=== PATIENT | female | born 1985 | race Caucasian/White ===

== ENCOUNTER 2018-01-02 10:55 | Emergency (ER) | payer OTHER ==
[2018-01-02] MEDS ORDERED: IBUPROFEN 400 MG TAB ONE (11:26)
--- NOTE | 2018-01-02 12:18 | RAD REPORT ---
EXAM DESCRIPTION: RAD - Ankle Left 3 View - 01/02/2018 12:01 pm CLINICAL HISTORY: PAIN COMPARISON: None FINDINGS: Prominent lateral soft tissue swelling is noted. Small bony corticated fragment seen infer ior to the distal fibula, which may represent an avulsion fracture. No dislocation. Small calcaneal s purs.
--- NOTE | 2018-01-02 12:22 | RAD REPORT ---
EXAM DESCRIPTION: RAD - Foot Left 3 View - 01/02/2018 12:01 pm CLINICAL HISTORY: PAIN COMPARISON: FOOT AP LAT dated 01/27/2011 FINDINGS: Soft tissue swelling is seen about the ankle. A small ankle joint fusion is present. Fract ure of the foot is not identified. Small calcaneal spurs noted.
--- NOTE | 2018-01-02 12:22 | ER ---
Nurse's Notes [facility] Name: Arabella Wright Age: 32 yrs Sex: Female : 1985 Arrival Date: 01/02/2018 Time: 10:57 Bed 13 Private MD: Diagnosis: Left Ankle Avulsion Fracture of Lateral Malleolus Presentation: 01/02 11:10 Initial Sepsis Screen: Does the patient meet any 2 criteria?. rb1 11:10 Risk Assessment: Do you want to hurt yourself or someone else? Patient reports no rb1 desire to harm self or others. Initial Sepsis Screen: Does the patient have a suspected source of infection? No. Patient's initial sepsis screen is negative. 11:12 Presenting complaint: Patient states: Rolled left ankle while hopping down from chair hb yesterday, c/o left foot and ankle pain 01/05. Unable to bear weight. Transition of care: patient was not received from another setting of care. Onset of symptoms was January 01, 2018. Care prior to arrival: None. 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 - Social history:: Smoking status: Patient/guardian denies using tobacco. - Ebola Screening: : No symptoms or risks identified at this time. Screenin:10 Abuse screen: Denies threats or abuse. Nutritional screening: No deficits noted. rb1 Tuberculosis screening: No symptoms or risk factors identified. Fall Risk Fall in past 12 months (25 points). No secondary diagnosis (0 pts). No IV (0 pts). Ambulatory Aid- None/Bed Rest/Nurse Assist (0 pts). Gait- Normal/Bed Rest/Wheelchair (0 pts) Mental Status- Oriented to own ability (0 pts). Total Nieto Fall Scale indicates Low Risk Score (25-44 pts). Fall prevention measures have been instituted. Side Rails Up X 2 Placed close to Nursing Station 1:1 attendant Assigned to Pt. Frequent Obs/Assesments occuring Family Present and informed to notify staff if they need to leave bedside As available Patient and Family Educated on Fall Prevention Program and strategies. Assessment: 11:10 General: Appears uncomfortable, obese, Behavior is calm, cooperative. Pain: Complains rb1 of pain in left lateral ankle and left medial ankle Pain currently is 10 out of 10 on a pain scale. Pain began 1 day ago. Aggravated by weight bearing. Neuro: Level of Consciousness is awake, alert, obeys commands, Oriented to person, place, time, situation. Cardiovascular: Capillary refill < 3 seconds is brisk in left toes. Respiratory: Airway is patent Respiratory effort is even, unlabored, Respiratory pattern is regular, symmetrical. GI: No signs and/or symptoms were reported involving the gastrointestinal system. : No signs and/or symptoms were reported regarding the genitourinary system. Derm: Skin is pink, warm \T\ dry. Musculoskeletal: Range of motion: limited in left ankle Swelling present in left lateral ankle and left medial ankle. 12:00 Reassessment: Patient appears in no apparent distress at this time. Patient and/or rb1 family updated on plan of care and expected duration. Pain level reassessed. Patient is alert, oriented x 3, equal unlabored respirations, skin warm/dry/pink. Family at bedside. Vital Signs: 11:13 BP 164 / 81; Pulse 90; Resp 16; Temp 98.3; Pulse Ox 98% ; Pain 8/10; hb 12:00 BP 152 / 83; Pulse 81; Resp 18; Pulse Ox 100% on R/A; Pain 5/10; rb1 ED Course: 10:57 Patient arrived in ED. as 11:09 Joss Kaplan PA is PHCP. cp 11:09 Gary Bazzi MD is Attending Physician. cp 11:09 Alma Valiente, RN is Primary Nurse. rb1 11:10 Patient has correct armband on for positive identification. Bed in low position. Call rb1 light in reach. Side rails up X 1. Pulse ox on. NIBP on. 11:13 Triage completed. hb 11:13 Arm band placed on right wrist. hb 12:00 X-ray completed. Portable x-ray completed in exam room. Patient tolerated procedure ka well. 12:21 Dain Ontiveros MD is Referral Physician. cp 12:35 No provider procedures requiring assistance completed. Patient did not have IV access rb1 during this emergency room visit. Administered Medications: 11:25 Drug: Ibuprofen 800 mg Route: PO; rb1 12:00 Follow up: Response: No adverse reaction; Pain is decreased rb1 Outcome: 12:22 Discharge ordered by . cp 12:35 Discharged to home via wheelchair, with family. rb1 12:35 Condition: stable 12:35 Discharge instructions given to patient, Instructed on discharge instructions, follow up and referral plans. medication usage, Demonstrated understanding of instructions, follow-up care, medications, Prescriptions given X 2. 12:35 Patient left the ED. rb1 Signatures: Yenny Delacruz Corey, PA PA cp Barber, Rebecca, MICHELLE RN rb1 Soraida Blanchard Heather RN RN Corrections: (The following items were deleted from the chart) 12:41 12:41 Patient left the ED. rb1 rb1
--- NOTE | 2018-01-02 12:22 | EDPHYS ---
Physician Documentation [facility] Name: Arabella Wright Age: 32 yrs Sex: Female : 1985 Arrival Date: 01/02/2018 Time: 10:57 Bed 13 Private MD: ED Physician Gary Bazzi HPI: 01/02 11:34 This 32 yrs old Female presents to ER via Wheelchair with complaints of Ankle cp Injury. 11:34 The patient presents with decreased range of motion, pain, that is acute, swelling, cp tenderness. The complaints affect the left ankle, left foot. Onset: The symptoms/episode began/occurred yesterday. 11:34 Associated signs and symptoms: Pertinent positives: weakness, Pertinent negatives: calf cp tenderness, numbness, tingling. 11:34 Severity of symptoms: in the emergency department the symptoms are unchanged, despite cp home interventions. 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 - Social history:: Smoking status: Patient/guardian denies using tobacco. - Ebola Screening: : No symptoms or risks identified at this time. ROS: 11:38 Constitutional: Negative for body aches, chills, fever, poor PO intake. cp 11:38 Eyes: Negative for injury, pain, redness, and discharge. cp 11:38 Cardiovascular: Negative for chest pain, edema, palpitations. 11:38 Respiratory: Negative for cough, shortness of breath, wheezing. 11:38 Abdomen/GI: Negative for abdominal pain, nausea, vomiting, and diarrhea. 11:38 MS/extremity: Positive for injury or acute deformity, decreased range of motion, pain, swelling, tenderness, of the left ankle, Negative for paresthesias. 11:38 Skin: Negative for cellulitis, rash. 11:38 All other systems are negative. Exam: 11:42 Constitutional: The patient appears in no acute distress, alert, awake, well developed, cp well nourished. 11:42 Head/Face: Normocephalic, atraumatic. cp 11:42 Eyes: Periorbital structures: appear normal, Conjunctiva: normal, no exudate, no injection, Lids and lashes: appear normal, bilaterally. 11:42 ENT: External ear(s): are unremarkable, Nose: is normal, Mouth: Lips: moist, Oral mucosa: moist, Posterior pharynx: is normal, airway is patent, no erythema, no exudate. 11:42 Chest/axilla: Inspection: normal, Palpation: is normal, no crepitus, no tenderness. 11:42 Cardiovascular: Rate: normal, Rhythm: regular. 11:42 Respiratory: the patient does not display signs of respiratory distress, Respirations: normal, no use of accessory muscles, no retractions, no splinting, no tachypnea. 11:42 Abdomen/GI: Exam negative for discomfort, distension, guarding, Inspection: abdomen appears normal. 11:42 Back: pain, is absent, ROM is normal. 11:42 Musculoskeletal/extremity: Extremities: grossly normal except: noted in the left ankle: decreased ROM, pain, swelling, tenderness, left foot pain and tenderness. 11:42 Neuro: Sensation: no obvious gross deficits. Vital Signs: 11:13 BP 164 / 81; Pulse 90; Resp 16; Temp 98.3; Pulse Ox 98% ; Pain 8/10; hb 12:00 BP 152 / 83; Pulse 81; Resp 18; Pulse Ox 100% on R/A; Pain 5/10; rb1 Procedures: 12:35 Splinting: Splint applied to left ankle and left foot using walking boot. applied by cp nurse. Examined by me, post splint application: neurovascular intact, Patient tolerated well. MDM: 11:09 Patient medically screened. cp 12:00 Differential diagnosis: fracture, sprain, dislocation. cp 12:21 Data reviewed: vital signs, nurses notes, lab test result(s), radiologic studies, plain cp films. 12:21 Test interpretation: by ED physician or midlevel provider: plain radiologic studies. cp Counseling: I had a detailed discussion with the patient and/or guardian regarding: the historical points, exam findings, and any diagnostic results supporting the discharge/admit diagnosis, radiology results, the need for outpatient follow up, a orthopedic surgeon, to return to the emergency department if symptoms worsen or persist or if there are any questions or concerns that arise at home. Response to treatment: the patient's symptoms have mildly improved after treatment, and as a result, I will discharge patient. 01/02 11:34 Order name: XRAY Ankle LEFT 3 view cp 01/02 11:34 Order name: XRAY Foot LEFT 3 View cp 01/02 12:13 Order name: Walking boot; Complete Time: 12:37 cp 01/02 12:18 Order name: RAD; Complete Time: 12:20 EDMS 01/02 12:23 Order name: RAD EDMD Administered Medications: 11:25 Drug: Ibuprofen 800 mg Route: PO; rb1 12:00 Follow up: Response: No adverse reaction; Pain is decreased rb1 Disposition: 18:39 Co-signature as Attending Physician, Gary Bazzi MD. rn Disposition: 01/02/18 12:22 Discharged to Home. Impression: Left Ankle Avulsion Fracture of Lateral Malleolus. - Condition is Stable. - Discharge Instructions: Ankle Fracture. - Prescriptions for Ibuprofen 800 mg Oral Tablet - take 1 tablet by ORAL route every 8 hours As needed take with food; 30 tablet. Tramadol 50 mg Oral Tablet - take 1 tablet by ORAL route every 8 hours as needed; 20 tablet. - Medication Reconciliation Form, Thank You Letter, Antibiotic Education, Prescription Opioid Use form. - Follow up: Dain Ontiveros MD; When: 1 week; Reason: avulsion fracture left ankle. - Problem is new. - Symptoms have improved. Signatures: Dispatcher [employer] EDMD Gary Bazzi MD MD rn Joss Kaplan PA PA cp Alma Valiente RN RN rb1 Rhianna Rehman RN RN Corrections: (The following items were deleted from the chart) 12:38 12:13 Crutches ordered. cp rb1 12:41 12:22 01/02/2018 12:22 Discharged to Home. Impression: Left Ankle Avulsion Fracture of rb1 Lateral Malleolus. Condition is Stable. Forms are Medication Reconciliation Form, Thank You Letter, Antibiotic Education, Prescription Opioid Use. Follow up: Dr. Dain Ontiveros; When: 1 week; Reason: avulsion fracture left ankle. Problem is new. Symptoms have improved. cp
== END 2018-01-02 12:41 | disposition home or self-care (01) ==
LOC: ER 10:55
DX: S82.62XA Displaced fracture of lateral malleolus of left fibula, initial encounter for closed fracture (principal); X58.XXXA Exposure to other specified factors, initial encounter; Y93.9 Activity, unspecified; Y92.9 Unspecified place or not applicable; Z88.0 Allergy status to penicillin
CPT/HCPCS: 99283

== ENCOUNTER 2018-06-19 18:41 | Observation (INO) | payer OTHER ==
[2018-06-19 19:33] LABS: Protime INR 1.11
[2018-06-19 19:34] LABS: Absolute Monocytes 0.5 K/uL (0.1-1.3); Absolute Neutrophil 5.7 K/uL (1.8-8.0); Basophils % 0.6 % (0-1.3); Eosinophils % 0.4 % (0-4.4); Hematocrit 38.8 % (36.0-45.0); MPV 9.5 fL (7.6-11.3); Monocytes % 5.4 % (3.3-12.3); RBC Red Blood Cell Count 4.63 M/uL (3.86-4.86)
[2018-06-19 19:51] LABS: ALT/SGPT 32 U/L (12-78); AST/SGOT 18 U/L (15-37); Alkaline Phosphatase 85 U/L (45-117); BUN Blood Urea Nitrogen 16 mg/dL (7-18); Bicarbonate 25 mmol/L (21-32); Bilirubin Direct 0.1 mg/dL (0-0.2); Bilirubin Total 0.5 mg/dL (0.2-1.0); Glucose Level 90 mg/dL (74-106); Lipase 113 U/L (73-393); Magnesium 2.1 mg/dL (1.8-2.4); NT PRO-BNP 33 pg/mL (<125); Potassium 3.8 mmol/L (3.5-5.1); Protein, Total 8.4 g/dL (6.4-8.2); Sodium Level 137 mmol/L (136-145); Troponin (Emerg Dept Use Only) < 0.02 ng/mL (0.0-0.045)
[2018-06-19] MEDS ORDERED: ONDANSETRON 4 MG/2 ML VIAL ONE (19:56)
[2018-06-19] MEDS ORDERED: MORPHINE 4 MG/ML SYR ONE ×2 (19:56→22:02)
--- NOTE | 2018-06-19 20:12 | RAD REPORT ---
EXAM DESCRIPTION: Sophia Single View06/19/2018 7:55 pm CLINICAL HISTORY: Chest pain COMPARISON: 2017 FINDINGS: The lungs appear clear of acute infiltrate. The heart is normal size IMPRESSION: No acute abnormalities displayed
--- NOTE | 2018-06-19 21:43 | EDPHYS ---
Physician Documentation [facility] Name: Arabella Wright Age: 32 yrs Sex: Female : 1985 Arrival Date: 06/19/2018 Time: 18:42 Bed 2 Private MD: ED Physician Oscar Milan HPI: 06/19 21:22 This 32 yrs old Female presents to ER via Wheelchair with complaints of Chest gs Pain. 21:22 The patient or guardian reports chest pain that is located primarily in the epigastric gs area. The pain does not radiate. Associated signs and symptoms: Pertinent positives: abdominal pain, nausea. The chest pain is described as burning. Duration: The patient or guardian reports a single episode, that is still ongoing. Severity of pain: At its worst the pain was moderate in the emergency department the pain is unchanged. The patient has experienced similar episodes in the past, a few times. The patient has been recently seen by a physician: rosalee roberts. 21:40 says was in [place] last week had abl gallbladder and abl troponin and was admitted. 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 - Social history:: Smoking status: Patient/guardian denies using tobacco. - Ebola Screening: : No symptoms or risks identified at this time. ROS: 21:22 All other systems are negative. gs Exam: 21:22 Constitutional: The patient appears alert, awake. 21:43 ECG was reviewed by the Attending Physician. Vital Signs: 19:14 BP 157 / 102; Pulse 91; Resp 24; Temp 98.8; Pulse Ox 100% on R/A; Weight 124.74 kg; ph Height 5 ft. 8 in. (172.72 cm); Pain 10/10; 20:50 BP 115 / 60; Pulse 79; Resp 14; Pulse Ox 99% on R/A; aa1 22:03 BP 127 / 82; Pulse 80; Resp 16; Pulse Ox 98% on R/A; Pain 4/10; tl1 22:38 BP 125 / 73; Pulse 79; Resp 15; Temp 98.7; Pulse Ox 98% on R/A; Pain 2/10; tl1 19:14 Body Mass Index 41.81 (124.74 kg, 172.72 cm) ph MDM: 19:12 Patient medically screened. 21:39 Differential diagnosis: abnormal EKG, acute myocardial infarction. Data reviewed: vital gs signs, nurses notes. 06/19 19:10 Order name: Basic Metabolic Panel 06/19 19:10 Order name: CBC with Diff 06/19 19:10 Order name: LFT's 06/19 19:10 Order name: Magnesium 06/19 19:10 Order name: NT PRO-BNP 06/19 19:10 Order name: PT-INR 06/19 19:10 Order name: Troponin (emerg Dept Use Only) 06/19 19:12 Order name: Lipase 06/19 20:23 Order name: US Abdomen Limited 06/19 20:33 Order name: Urine Dipstick--Ancillary (enter results) [facility] 06/19 20:33 Order name: Urine --Ancillary (enter results) [facility] 06/19 19:10 Order name: EKG; Complete Time: 21:49 06/19 19:10 Order name: Cardiac monitoring; Complete Time: 19:35 06/19 19:10 Order name: EKG - Nurse/Tech; Complete Time: 19:35 06/19 19:10 Order name: IV Saline Lock; Complete Time: 19:35 06/19 19:10 Order name: Labs collected and sent; Complete Time: 19:35 06/19 19:10 Order name: O2 Per Protocol; Complete Time: 19:35 06/19 19:10 Order name: O2 Sat Monitoring; Complete Time: 19:36 EC:43 Rate is 96 beats/min. Rhythm is regular. QRS interval is normal. QT interval is normal. gs T waves are Normal. No ST changes noted. Clinical impression: Normal ECG. Interpreted by me. Administered Medications: 19:49 Drug: morphine 4 mg Route: IVP; Infused Over: 2 mins; Site: right forearm; tl1 22:55 Follow up: Response: No adverse reaction; Marked relief of symptoms; Pain is decreased tl1 19:49 Drug: Zofran 4 mg Route: IVP; Infused Over: 2 mins; Site: right forearm; tl1 22:55 Follow up: Response: No adverse reaction; Marked relief of symptoms; Nausea is decreasedtl1 21:58 Drug: morphine 4 mg Route: IVP; Infused Over: 2 mins; Site: right forearm; tl1 22:15 Follow up: Response: No adverse reaction; Marked relief of symptoms; Pain is decreased tl1 Disposition: 06/19/18 21:42 Hospitalization ordered by Gus Jones for Observation. Preliminary diagnosis are Chest pain, unspecified, Epigastric pain. - Bed requested for Telemetry/MedSurg (observation). - Status is Observation. tl1 - Condition is Stable. - Problem is new. - Symptoms have improved. UTI on Admission? No Signatures: Dispatcher [employer] EDWV Tiffanie Paul RN RN Charlene Pike RN RN 1 Julissa Walker, RN RN Oscar Milan MD MD gs Corrections: (The following items were deleted from the chart) 21:51 21:42 Hospitalization Ordered by Gus Jones MD for Observation. Preliminary diagnosis is Chest pain, unspecified; Epigastric pain. Bed requested for Telemetry/MedSurg (observation). Status is Observation. Condition is Stable. Problem is new. Symptoms have improved. UTI on Admission? No. gs 21:53 21:49 Chest Single View+RAD.RAD.BRZ ordered. [facility] EDWV 22:54 21:51 06/19/2018 21:42 Hospitalization Ordered by Gus Jones MD for Observation. tl1 Preliminary diagnosis is Chest pain, unspecified; Epigastric pain. Bed requested for Telemetry/MedSurg (observation). Status is Observation. Condition is Stable. Problem is new. Symptoms have improved. UTI on Admission? No. mw
--- NOTE | 2018-06-19 21:43 | ER ---
Nurse's Notes [facility] Name: Arabella Wright Age: 32 yrs Sex: Female : 1985 Arrival Date: 06/19/2018 Time: 18:42 Bed 2 Private MD: Diagnosis: Chest pain, unspecified;Epigastric pain Presentation: 06/19 19:12 Presenting complaint: Patient states: Pain in paul rib area that radiates to epigastric ph region, N/V, states that she was seen at [facility] approx 1 week ago and dx w/ gallbladder problems and elevated cardiac enzymes, was d/c home and instructed to follow up w/ PCP and support service tech but appointment is not until next week. Transition of care: patient was not received from another setting of care. Onset of symptoms was June 19, 2018. Risk Assessment: Do you want to hurt yourself or someone else? Patient reports no desire to harm self or others. Initial Sepsis Screen: Does the patient meet any 2 criteria? No. Patient's initial sepsis screen is negative. Care prior to arrival: None. 19:12 Method Of Arrival: Wheelchair ph 19:12 Acuity: BONITA 3 ph 22:02 Initial Sepsis Screen: Does the patient have a suspected source of infection? No. tl1 Patient's initial sepsis screen is negative. 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 - Social history:: Smoking status: Patient/guardian denies using tobacco. - Ebola Screening: : No symptoms or risks identified at this time. Screenin:42 Abuse screen: Denies threats or abuse. Denies injuries from another. Nutritional tl1 screening: No deficits noted. Tuberculosis screening: No symptoms or risk factors identified. Fall Risk IV access (20 points). Assessment: 19:39 General: Appears comfortable, Behavior is cooperative, appropriate for age. Pain: tl1 Complains of pain in epigastric area Pain radiates to back and abdomen Pain currently is 10 out of 10 on a pain scale. Quality of pain is described as aching, crampy, crushing, sharp, shooting, stabbing, squeezing, Pain began 1 day ago. 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 Neuro: Level of Consciousness is awake, alert, obeys commands, Oriented to person, place, time, situation. Cardiovascular: Reports chest pain, nausea. Respiratory: Airway is patent Trachea midline Respiratory effort is even, unlabored, Breath sounds are clear bilaterally. GI: Abdomen is obese, Bowel sounds present X 4 quads. Abd is soft Abdomen is tender to palpation in epigastric area, right upper quadrant and left upper quadrant Reports upper abdominal pain, cramping, intolerance of food, nausea. : No signs and/or symptoms were reported regarding the genitourinary system. 22:02 Reassessment: Patient and/or family updated on plan of care and expected duration. Pain tl1 level reassessed. Patient is alert, oriented x 3, equal unlabored respirations, skin warm/dry/pink. Patient states feeling better. Patient states symptoms have improved. 22:36 Reassessment: Report given to Mae MARTINEZ. tl1 Vital Signs: 19:14 BP 157 / 102; Pulse 91; Resp 24; Temp 98.8; Pulse Ox 100% on R/A; Weight 124.74 kg; ph Height 5 ft. 8 in. (172.72 cm); Pain 10/10; 20:50 BP 115 / 60; Pulse 79; Resp 14; Pulse Ox 99% on R/A; aa1 22:03 BP 127 / 82; Pulse 80; Resp 16; Pulse Ox 98% on R/A; Pain 4/10; tl1 22:38 BP 125 / 73; Pulse 79; Resp 15; Temp 98.7; Pulse Ox 98% on R/A; Pain 2/10; tl1 19:14 Body Mass Index 41.81 (124.74 kg, 172.72 cm) ph ED Course: 18:42 Patient arrived in ED. mr 19:03 Oscar Milan MD is Attending Physician. gs 19:11 Charlene Pike, MICHELLE is Primary Nurse. tl1 19:14 Triage completed. ph 19:14 Patient has correct armband on for positive identification. Placed in gown. Bed in low tl1 position. Side rails up X 1. bus driver/monitor on. Pulse ox on. NIBP on. 19:15 Arm band placed on Patient placed in an exam room, on a stretcher, in view of staff ph members, on cardiac technician, on pulse oximetry. 19:15 No provider procedures requiring assistance completed. Inserted saline lock: 20 gauge tl1 in right forearm, using aseptic technique. Blood collected. Patient maintains SpO2 saturation greater than 95% on room air. 21:42 Gus Jones MD is Hospitalizing Provider. gs 22:44 Patient admitted, IV remains in place. tl1 Administered Medications: 19:49 Drug: morphine 4 mg Route: IVP; Infused Over: 2 mins; Site: right forearm; tl1 22:55 Follow up: Response: No adverse reaction; Marked relief of symptoms; Pain is decreased tl1 19:49 Drug: Zofran 4 mg Route: IVP; Infused Over: 2 mins; Site: right forearm; tl1 22:55 Follow up: Response: No adverse reaction; Marked relief of symptoms; Nausea is decreasedtl1 21:58 Drug: morphine 4 mg Route: IVP; Infused Over: 2 mins; Site: right forearm; tl1 22:15 Follow up: Response: No adverse reaction; Marked relief of symptoms; Pain is decreased tl1 Outcome: 21:42 Decision to Hospitalize by Provider. gs 22:43 Admitted to Med/surg accompanied by tech, via wheelchair, Report called to Mae tl1 22:43 Condition: good 22:43 Instructed on the need for admit. 22:54 Patient left the ED. tl1 Signatures: Corrie Zabala RN RN 1 Aishwarya Caldwell mr PikeCharlene RN RN tl1 Julissa Walker RN RN Oscar Milan MD MD
[2018-06-19 22:14] LABS: Urine Blood 2+ (NEG); Urine Glucose NEGATIVE (NEG); Urine Protein NEGATIVE (NEG); Urine pH 5.5 (5.0-7.0)
--- NOTE | 2018-06-19 22:15 | P.HP ---
Certification for Inpatient Patient admitted to: Observation With expected LOS: <2 Midnights Practitioner: I am a practitioner with admitting privileges, knowledge of patient current condition, hospital course, and medical plan of care. Services: Services provided to patient in accordance with Admission requirements found in Title 42 Section 412.3 of the Code of Federal Regulations Patient History Date of Service: 06/19/18 Reason for admission: abdominal pain, symptomatic cholelithiasis History of Present Illness: Ms Wright is a 32 years old woman with history of obesity, asthma, who about 3 days ago, had an episode of abdominal pain/chest pain associated with nausea and vomiting. She went to [facility], and was told that she had gallstones and mild inflammation of her gallbladder. She also had elevated troponin I. 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 Today, she had a new episode of abdominal pain, radiated to her chest initially. She describe like a burning pain in epigastric area. Lastly, the pain was localized on her RUQ, and was radiated to right shoulder blade and right flank. She denied fever or chills, but has had nausea and vomiting again. 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 Lab work shows normal WBC count, normal trop I, and normal liver function test. UA is unremarkable. EKG shows SR without ST-T abnormalities. Allergies PENICILLINS Allergy (Uncoded 09/08/16 01:34) Unknown Home medications list reviewed: Yes - Past Medical/Surgical History -: asthma -: tubal ligation - Family History Father -: Heart disease, Hypertension - Social History Smoking Status: Never smoker Alcohol use: Yes CD- Drugs: No Place of Residence: Home Review of Systems 10-point ROS is otherwise unremarkable Physical Examination - Physical Exam General: Alert, In no apparent distress HEENT: Atraumatic, PERRLA, Mucous membr. moist/pink, EOMI, Sclerae nonicteric Neck: Supple, 2+ carotid pulse no bruit, No LAD, Without JVD or thyroid abnormality Respiratory: Clear to auscultation bilaterally, Normal air movement Cardiovascular: Regular rate/rhythm, Normal S1 S2 Gastrointestinal: Normal bowel sounds, Tenderness (tenderness to palpation in RUQ, epigastric and sternal area.) Musculoskeletal: No tenderness Integumentary: No rashes Neurological: Normal speech, Normal strength at 5/5 x4 extr, Normal tone, Normal affect Lymphatics: No axilla or inguinal lymphadenopathy - Studies Laboratory Data (last 24 hrs) 06/19/18 19:10: PT 13.1 H, INR 1.11 06/19/18 19:10: WBC 9.3, Hgb 13.2, Hct 38.8, Plt Count 189 06/19/18 19:10: Sodium 137, Potassium 3.8, BUN 16, Creatinine 0.69, Glucose 90, Magnesium 2.1, Total Bilirubin 0.5, AST 18, ALT 32, Alkaline Phosphatase 85, Lipase 113 Assessment and Plan - Problems (Diagnosis) (1) Abdominal pain Current Visit: Yes Status: Acute Qualifiers: Abdominal location: right upper quadrant Qualified Code(s): R10.11 - Right upper quadrant pain (2) Symptomatic cholelithiasis Current Visit: Yes Status: Acute (3) Obesity Current Visit: Yes Status: Acute Qualifiers: Obesity type: unspecified obesity type Obesity classification: unspecified obesity classification Serious obesity comorbidity presence: unspecified whether serious comorbidity present Qualified Code(s): E66.9 - Obesity, unspecified - Plan The patient will be admitted to the hospital due to sever abdominal pain. Due to clinical presentation, and previous images studies (not available at this time, only per patient report) this is highly suspicion for at least symptomatic cholelithiasis. Will order to get the records from [facility], start pain control, keep the patient NPO, IV fluids. Pending abdominal US. - Advance Directives Does patient have a Living Will: No Does patient have a Durable POA for Healthcare: No - Code Status/Comfort Care Code Status Assessed: Yes Code Status: Full Code
[2018-06-19] MEDS ORDERED: ACETAMINOPHEN 500 MG TAB PO PRN (22:56)
[2018-06-19 23:30] VITALS: BMI 44.7
[2018-06-19] MEDS: NA CHLORIDE 0.9% 1,000 ML IV SCH (23:58)
[2018-06-20] MEDS: KETOROLAC 30 MG/ML INJ IV PRN ×4 (02:31→22:05)
[2018-06-20 07:36] LABS: Absolute Lymphocytes (CBC) 1.9 K/uL (0.7-4.9); Absolute Monocytes 0.4 K/uL (0.1-1.3); Basophils % 0.5 % (0-1.3); Eosinophils % 0.8 % (0-4.4); Hematocrit 36.6 % (36.0-45.0); Lymphocytes % 36.1 % (15.3-44.8); MPV 9.4 fL (7.6-11.3); Monocytes % 7.3 % (3.3-12.3); RBC Red Blood Cell Count 4.37 M/uL (3.86-4.86)
--- NOTE | 2018-06-20 07:53 | RAD REPORT ---
EXAM DESCRIPTION: US - Abdomen Exam Limited - 06/19/2018 10:21 pm CLINICAL HISTORY: Abdominal pain. COMPARISON: None. FINDINGS: Multiple gallstones are present. Gallbladder wall is not thickened. The biliary tree is not well seen but appears to be normal caliber IMPRESSION: Cholelithiasis without evidence of cholecystitis
[2018-06-20] MEDS ORDERED: INFLUENZA VACCINE (for 3y+) 0.5 ML DOSE IMVAC ONE (08:00)
[2018-06-20 08:05] LABS: ALT/SGPT 29 U/L (12-78); AST/SGOT 19 U/L (15-37); Albumin 3.4 g/dL (3.4-5.0); Alkaline Phosphatase 78 U/L (45-117); BUN Blood Urea Nitrogen 13 mg/dL (7-18); Bicarbonate 25 mmol/L (21-32); Bilirubin Total 0.5 mg/dL (0.2-1.0); Glucose Level 92 mg/dL (74-106); Potassium 3.9 mmol/L (3.5-5.1); Protein, Total 7.2 g/dL (6.4-8.2); Sodium Level 139 mmol/L (136-145)
[2018-06-20] MEDS ORDERED: CEFOXITIN SODIUM 1 GM/VIAL IVPB ONE (08:50)
[2018-06-20] MEDS ORDERED: CEFOXITIN/SWI 1gm 1 GM/10 ML SYR IV ONE (09:00)
[2018-06-20] MEDS: NA CHLORIDE 0.9% 1,000 ML IV SCH ×3 (09:41→22:05)
[2018-06-20] MEDS: ONDANSETRON 4 MG/2 ML VIAL IV PRN ×2 (09:41→15:32)
[2018-06-20] MEDS ORDERED: BUPIVACA 0.25%/EPI 0.0005% MDV 50 ML VIAL ONE (10:05)
[2018-06-20] MEDS ORDERED: FENTANYL CITR 100 MCG/2 ML ONE ×2 (10:35→11:55)
[2018-06-20] MEDS ORDERED: ROCURONIUM 50 MG/5 ML VIAL IV ONE (10:35)
[2018-06-20] MEDS ORDERED: DEXAMETHASONE 10 MG/ML VIAL ONE (10:35)
[2018-06-20] MEDS ORDERED: LIDOCAINE 2% MPF 5 ML VIAL ONE (10:35)
[2018-06-20] MEDS ORDERED: PROPOFOL 200 MG/20 ML VIAL IV ONE (10:35)
[2018-06-20] MEDS ORDERED: MIDAZOLAM HCL 2 MG/2 ML INJ ONE (10:36)
[2018-06-20] MEDS ORDERED: Ringers Lactate 1,000 ML IV ONE ×2 (10:45→12:45)
--- NOTE | 2018-06-20 11:39 | P.PN ---
Subjective Date of Service: 06/20/18 Primary Care Provider: SHIVAM([place], [place]) Chief Complaint: abdominal pain, symptomatic cholelithiasis Subjective: Other (Patient reports right upper quadrant pain) Physical Examination - Vital Signs Temperature: 97.2 F Blood Pressure: 121/65 Pulse: 72 Respirations: 16 Pulse Ox (%): 98 - Physical Exam General: Alert, In no apparent distress, Oriented x3, Cooperative HEENT: Atraumatic Neck: Supple Respiratory: Clear to auscultation bilaterally, Normal air movement Cardiovascular: Normal pulses, Regular rate/rhythm Gastrointestinal: Normal bowel sounds, Soft and benign, Non-distended, No masses , No rebound, No guarding, Tenderness (Right upper quadrant pain noted) Musculoskeletal: No erythema, No tenderness, No warmth Integumentary: No tenderness/swelling, No erythema, No warmth, No cyanosis Neurological: Normal speech, Normal strength at 5/5 x4 extr, Normal tone, Normal affect - Studies Laboratory Data (last 24 hrs) 06/19/18 19:12: Lipase Cancelled 06/19/18 19:10: PT 13.1 H, INR 1.11 06/19/18 19:10: WBC 9.3, Hgb 13.2, Hct 38.8, Plt Count 189 06/19/18 19:10: Sodium 137, Potassium 3.8, BUN 16, Creatinine 0.69, Glucose 90, Magnesium 2.1, Total Bilirubin 0.5, AST 18, ALT 32, Alkaline Phosphatase 85, Lipase 113 Medications List Reviewed: Yes Assessment & Plan Discharge Plan: Home Plan to discharge in: 24 Hours Physician Review Additional Text: Impression: Right upper quadrant abdominal pain secondary to symptomatic cholelithiasis Fatty liver Obesity, BMI 44.8 Plan: Right upper quadrant abdominal pain secondary to symptomatic cholelithiasis: Patient with symptomatic cholelithiasis. Case discussed with surgery. Surgery plans surgical intervention. Patient will need laparoscopic cholecystectomy. Anticipate discharge later today after surgery Fatty liver: Address lifestyle modification education. Obesity, BMI 44.8: Patient to continue with lifestyle modification education. Time Spent Managing Pts Care (In Minutes): 55
[2018-06-20] MEDS ORDERED: GLYCOPYRROLATE 0.2 MG/ML SYR ONE (11:53)
[2018-06-20] MEDS ORDERED: NEOSTIGMINE 1 MG/ML -5 ML SYRINGE ONE ×2 (11:56→12:17)
--- NOTE | 2018-06-20 12:07 | CON ---
Date of Consultation: 06/20/2018 Brief History Of Present Illness: The patient is a 32-year-old female with a history of ob esity, asthma, who was in complaining of abdominal pain approximately 1 week ago when she went to the [facility]. She states that she had abdominal pain at that time, which was in the epigastrium with r adiation to the right upper quadrant and through to her back. She was admitted to the hospital at at time and found to have what she states was gallstones and inflammation of her gallbladder. Howeve r, she was informed that they had no surgeon there, and she was given antibiotics and discharged from the hospital the next day with pain medication. She was told to be on a bland diet, which she state s she has been tried to be compliant with. Her pain has been intermittent since her discharge from here. She additionally stated that her troponins appeared elevated at that time during her admission s and was told to follow up with a professional model as an outpatient. However, she has not done so. On her admission here, however, she had 3 sets of cardiac enzymes, which were all checked and I spoke to Dr. Chun regarding this, and he states she is clear for surgery from a medical standpoint, and her EKG was performed as well as the troponins as described. Her pain remains present at this time. Zainab taylor came to our hospital on this particular admission after abdominal pain re-ensued yesterday in the e pigastric and right upper quadrant with some radiation through to her back similar to her previous ep isode. It was described as sharp, stabbing, now sore predominantly, associated with some nausea. No vomiting. No change in bowel or bladder habits. Past Medical History: Significant for asthma. Past Surgical History: Tubal ligation. Allergies: TO PENICILLIN. Family History: Heart disease and hypertension in her father. Social History: She denies smoking, alcohol, or recreational drug use. 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 Review of Systems: A 10-point review of systems other than HPI, denies. Physical Examination: Vital Signs: At the time of my examination, her BMI is 45. She is 5 feet 8 inches, almost 300 pound s. Blood pressure 121/65, pulse is 72, respiratory rate 16, temperature 97.2. General: She is awake, alert, and oriented. Psychiatric: She is appropriate and conversive. HEENT: She is normocephalic, sclerae anicteric. Mucous membranes are moist. Oropharynx clear. Neck: Supple. No JVD. Chest: Normal expansion and excursion. Cardiovascular: Regular rate and rhythm. Pulmonary: Clear to auscultation bilaterally. Abdomen: Soft with mild epigastric and right upper quadrant tenderness to palpation. She has some t enderness to deep palpation on the right upper quadrant and a weakly positive Leon sign on the righ t. The remainder of abdominal exam is unremarkable, other than marked obesity. Extremities: No clubbing, cyanosis, or edema. Skin: Warm and dry. Laboratory Data: Reveals a white blood cell count of 5.4, hemoglobin is 12.5, hematocrit 36.6, plate let count is 147. Her PT was 13.1, INR 1.11 on admission. Sodium 139, potassium 3.9, chloride 108 c arbon dioxide 25, BUN 13, creatinine 0.7, glucose is 92, calcium 8.4. Her magnesium was 0.5. Total bilirubin 0.5, direct component was 0.1 on admission. AST is 19, ALT 29, alkaline phosphatase 78. H er rapid troponin was checked and it was less than 0.02 on multiple checks. ProBNP is 33. Lipase is 113. Her UA showed 2+ blood and 1+ ketones, negative otherwise, and her urine test was ne gative. Her home medications included an albuterol inhaler only. She had imaging performed here, which included a chest x-ray officially read as no acute abnormalitie s displayed, and she had an abdominal ultrasound, which was also officially read as cholelithiasis wi thout evidence of cholecystitis. Multiple gallstones are present. Gallbladder wall is not thickened . Severity of biliary tree is not well seen, but appears normal caliber. Assessment And Plan: This is a 32-year-old female who comes in with symptomatic cholelithiasis. 1.IV fluid hydration. 2.Continue medical management. 3.I have explained the risks, benefits, and alternatives of laparoscopic, possible open cholecystect irais including but not limited to bleeding, infection, damage to surrounding tissues, injury to bile d ucts, intestines, need for further operation procedures. The patient agrees to proceed as indicated. NICOLE/KELLI Voice ID: [id number] Report ID: [id number]
--- NOTE | 2018-06-20 12:26 | P.OP ---
Primary Health Organisation Manager: Rosamaria Omalley Preoperative diagnosis: Acute Calculous Cholecystitis Postoperative diagnosis: Acute Calculous Cholecystitis Primary procedure: Laparoscopic Cholecystectomy Anesthesia: GETA + Local Estimated blood loss: <10cc Specimen: Gallbladder Findings: Acute Calculous Cholecystitis Complications: None Transferred to: Recovery Room Condition: Good
[2018-06-20] MEDS ORDERED: KETOROLAC 30 MG/ML INJ ONE (12:35)
[2018-06-20] MEDS: FENTANYL CITR 100 MCG/2 ML ONE ×2 (12:54→12:59)
[2018-06-20] MEDS ORDERED: HYDROCODONE/APAP 7.5/325 MG TAB PO SCH (14:00)
[2018-06-20] MEDS ORDERED: MORPHINE 4 MG/ML SYR IV PRN (16:08)
[2018-06-20] MEDS: HYDROCODONE/APAP 10/325 TAB PO PRN (17:41)
--- NOTE | 2018-06-20 19:47 | EKG ---
Test Date: 2018-06-20 Test Time: 07:53:00 Handling Tech: DIANA MEASUREMENT RESULTS: Intervals: Rate: 59 [place]: 156 QRSD: 98 QT: 412 QTc: 407 [place]: P: 24 [place]: 156 QRS: 31 T: 21 INTERPRETIVE STATEMENTS: Sinus bradycardia with sinus arrhythmia Otherwise normal ECG Compared to ECG 06/19/2018 19:11:35 Sinus rhythm no longer present Electronically Signed On 06-20-18 19:45:44 ROLLER MAN by Sarthak Alberto
--- NOTE | 2018-06-20 19:49 | EKG ---
Test Date: 2018-06-19 Test Time: 19:11:35 Panel Beater: LORI MEASUREMENT RESULTS: Intervals: Rate: 96 [place]: 134 QRSD: 84 QT: 370 QTc: 467 [place]: P: 47 [place]: 134 QRS: 32 T: 20 INTERPRETIVE STATEMENTS: Normal sinus rhythm Normal ECG Compared to ECG 09/07/2016 19:53:39 Sinus tachycardia no longer present ST (T wave) deviation no longer present Electronically Signed On 06-20-18 19:45:57 ORNAMENTAL PAINTER by Sarthak Alberto
--- NOTE | 2018-06-20 20:58 | OP ---
Date of Procedure: 06/20/2018 Surgeon: Vic Hair MD, Therapist: Rosamaria Omalley. Preoperative Diagnosis: Acute calculous cholecystitis. Postoperative Diagnosis: Acute calculous cholecystitis. Procedure Performed: Laparoscopic cholecystectomy. Anesthesia: General tracheal plus local with 0.25% Marcaine with epinephrine. Estimated Blood Loss: Less than 10 cc. Specimens: Gallbladder. Findings: Acute calculous cholecystitis. Complications: None. Disposition: Transferred to recovery room in good condition. Procedure In Detail: After informed consent was obtained, the patient was brought to the operating r oom, prepped and draped in the usual sterile fashion. After adequate anesthesia was achieved, the del cid praumbilical area was anesthetized with 0.25% Marcaine, sharply incised. A 5-mm trocar was introduce d into the abdomen without evidence of complication. Insufflation was obtained to 15 mmHg at this ti me. The area was inspected for any injury to vital structures, and no injury to vital structures upo n this time. Additional trocar chosen in the epigastrium. This was similarly anesthetized and sharp ly incised. A 5-mm trocar was introduced in the abdomen under direct visualization without evidence of complication. The umbilical trocar was then up-sized to 12 mm under direct visualization without evidence of complication. Additional trocar site was chosen in the right upper quadrant. This was s imilarly anesthetized and sharply incised, and a 5-mm trocar was introduced in the abdomen without ev idence of complication. The patient was positioned in head up, right side up position. Ratcheted gr asper was used to grasp the gallbladder taking down peritoneal attachments to the omentum, and electr ocautery was used for this as well. There was quite a bit of adipose tissue on the anterior surface of the gallbladder. This was removed using electrocautery and blunt dissection. Eventually, I disse cted down to visualize the triangle of Calot, visualizing the cystic duct and cystic artery with both the anterior and posterior branches of the cystic artery, which were both identified at the bifurcat ion. These were encircled as well as the cystic duct and doubly clipped with titanium clips on the p roximal side and singly on the distal side of both the cystic duct and anterior posterior branches of cystic artery. After this was performed, the gallbladder was removed from the hepatic fossa without evidence of complication using electrocautery with good hemostasis. No additional hemostatic maneuv ers were required. The gallbladder had minimal spillage of bile. The gallbladder was then placed in EndoCatch bag removed through the umbilical trocar. Re-insufflation was obtained at this time. The area was copiously irrigated multiple times until completely dry and the clips were found to be good anatomic position without any evidence of spillage. The area was copiously irrigated multiple times until completely clear. The patient was placed in neutral position, irrigated and suctioned out 1 l ast time, and then the umbilical trocar was removed. The umbilical trocar site was closed using a Reena Pereira suture passer, 0 Vicryl in interrupted fashion with good approximation of tissues. The abdomen was then completely desufflated under direct visualization without evidence of complication. All trocars were then removed, and all skin incisions were copiously irrigated and closed with a 4- 0 Monocryl in a running fashion. Dermabond was placed over the top. The patient tolerated the proce dure without evidence of complication, transferred to PACU in good condition. All counts were correc t at the end of the case. NICOLE/KELLI Voice ID: [id number] Report ID: [id number]
[2018-06-21] MEDS: NA CHLORIDE 0.9% 1,000 ML IV SCH (04:38)
[2018-06-21] MEDS: HYDROCODONE/APAP 10/325 TAB PO PRN ×2 (04:43→11:27)
[2018-06-21 10:05] VITALS: BP 121/73; TEMP 97.6
[2018-06-21 12:14] VITALS: O2SAT 95
--- NOTE | 2018-06-21 12:17 | P.DS ---
Admission Date: 06/19/18 Discharge Date: 06/21/18 Primary Care Provider: SHIVAM([place], [place]) Disposition: ROUTINE DISCHARGE Discharge Condition: GOOD Reason for Admission: abdominal pain, symptomatic cholelithiasis Consultations: Surgery: Dr. Hair Procedures: ABUS: COMPARISON: None. FINDINGS: Multiple gallstones are present. Gallbladder wall is not thickened. The biliary tree is not well seen but appears to be normal caliber IMPRESSION: Cholelithiasis without evidence of cholecystitis Impression: Right upper quadrant abdominal pain secondary to symptomatic cholelithiasis and acute on chronic cholecystitis Fatty liver Obesity, BMI 44.8 Brief History of Present Illness: 32-year-old female present emergency room with right upper quadrant pain. Patient seen recently at another facility for cholelithiasis. She had been admitted and discharged. She presents with increasing pain. Patient found to have cholelithiasis with possible cholecystitis. Hospital Course: Patient presents with right upper quadrant abdominal pain secondary to cholelithiasis. Acute on chronic cholecystitis was suspected. Patient seen and evaluated by surgery. Surgery recommended surgical intervention. Patient had laparoscopic cholecystectomy. Patient had mild pain and nausea after the procedure. She stayed Overnite. Her condition improved. At discharge patient will follow up with surgery within 1 week. No heavy lifting, pushing or pulling is recommended. Prescriptions for pain medication provided by surgery. Patient with fatty liver. Education will be provided at discharge. Vital Signs/Physical Exam: Temp Pulse Resp BP Pulse Ox 97.6 F 60 18 121/73 100 06/21/18 08:00 06/21/18 08:00 06/21/18 08:00 06/21/18 08:00 06/21/18 08:00 General: Alert, In no apparent distress, Oriented x3, Cooperative HEENT: Atraumatic Neck: Supple Respiratory: Clear to auscultation bilaterally, Normal air movement Cardiovascular: Normal pulses, Regular rate/rhythm Gastrointestinal: Normal bowel sounds, Soft and benign, Non-distended, No tenderness, No masses, No rebound, No guarding Musculoskeletal: No erythema, No tenderness, No warmth Integumentary: No tenderness/swelling, No erythema, No warmth, No cyanosis Neurological: Normal speech, Normal strength at 5/5 x4 extr, Normal tone, Normal affect Lymphatics: No axilla or inguinal lymphadenopathy Laboratory Data at Discharge: WBC 5.4 K/uL (4.3-10.9) D 06/20/18 07:10 Hgb 12.5 g/dL (12.0-15.0) 06/20/18 07:10 Hct 36.6 % (36.0-45.0) 06/20/18 07:10 Plt Count 147 K/uL (152-406) L D 06/20/18 07:10 PT 13.1 SECONDS (9.5-12.5) H 06/19/18 19:10 INR 1.11 06/19/18 19:10 Sodium 139 mmol/L (136-145) 06/20/18 07:10 Potassium 3.9 mmol/L (3.5-5.1) 06/20/18 07:10 BUN 13 mg/dL (7-18) 06/20/18 07:10 Creatinine 0.70 mg/dL (0.55-1.3) 06/20/18 07:10 Glucose 92 mg/dL (74-106) 06/20/18 07:10 Magnesium 2.1 mg/dL (1.8-2.4) 06/19/18 19:10 Total Bilirubin 0.5 mg/dL (0.2-1.0) 06/20/18 07:10 AST 19 U/L (15-37) 06/20/18 07:10 ALT 29 U/L (12-78) 06/20/18 07:10 Alkaline Phosphatase 78 U/L (45-117) 06/20/18 07:10 Troponin I < 0.02 ng/mL (0.0-0.045) 06/20/18 07:10 Lipase 113 U/L (73-393) 06/19/18 19:10 Home Medications: Albuterol Inhaler [Ventolin Inhaler] 2 puff IH Q6HP PRN 06/20/18 Hydrocodone 7.5/APAP 325 [[place] 7.5/325 mg] 1 tab PO Q6H PRN #20 tab 06/20/18 Ondansetron HCl [Zofran] 4 mg PO TID PRN #15 tablet 06/21/18 New Medications: Hydrocodone 7.5/APAP 325 [[place] 7.5/325 mg] 1 tab PO Q6H PRN #20 tab PRN Reason: Pain Ondansetron HCl [Zofran] 4 mg PO TID PRN #15 tablet PRN Reason: Nausea / Vomiting Patient Discharge Instructions: 1. Patient presents with right upper quadrant abdominal pain secondary to cholelithiasis. Acute on chronic cholecystitis was suspected. Patient seen and evaluated by surgery. Surgery recommended surgical intervention. Patient had laparoscopic cholecystectomy. Patient had mild pain and nausea after the procedure. She stayed Overnite. Her condition improved. At discharge patient will follow up with surgery within 1 week. No heavy lifting, pushing or pulling is recommended. Prescriptions for pain medication provided by surgery. 2. Patient with fatty liver. Education will be provided at discharge. Diet: [place] Activity: No lifting more than 10 lbs Followup: Vic Hair MD [ACTIVE - CAN ADMIT] - 1-2 Weeks (Call to schedule an appointment) Time spent managing pt's care (in minutes): 55
== END 2018-06-21 11:43 | disposition home or self-care (01) ==
LOC: ER 18:41 → ERHOLD 22:04 → 4TH 22:40
PROVIDERS: ADMIT Internal Medicine; ATTEND Internal Medicine
PROC: 0FT44ZZ Resection of Gallbladder, Percutaneous Endoscopic Approach (ICD-10-PCS; principal; 2018-06-20 11:45)
DX: K80.12 Calculus of gallbladder with acute and chronic cholecystitis without obstruction (principal); K76.0 Fatty (change of) liver, not elsewhere classified; E66.9 Obesity, unspecified; Z68.41 Body mass index [BMI] 40.0-44.9, adult; Z88.0 Allergy status to penicillin
CPT/HCPCS: 36415; 71045; 76705; 80048; 80053; 80076; 81003; 81025; 83690; 83735; 83880; 84484; 85025; 85610; 88304; 93005; 96374; 96375; 99285; G0378; J1100; J2250; J2405; J2704; J2710; J3010; J7030

== ENCOUNTER 2019-10-16 11:43 | Emergency (ER) | payer OTHER, SELFPAY ==
[2019-10-16 12:21] LABS: Absolute Lymphocytes (CBC) 1.8 K/uL (0.7-4.9); Basophils % 0.4 % (0-1.3); Hematocrit 39.3 % (36.0-45.0); Lymphocytes % 27.7 % (15.3-44.8); MPV 9.7 fL (7.6-11.3); RBC Red Blood Cell Count 4.66 M/uL (3.86-4.86)
[2019-10-16] MEDS ORDERED: ONDANSETRON 4 MG/2 ML VIAL ONE (12:32)
[2019-10-16] MEDS ORDERED: MORPHINE 4 MG/ML SYR ONE (12:32)
[2019-10-16] MEDS ORDERED: NA CHLORIDE 0.9% 1,000 ML ONE (12:32)
[2019-10-16 12:33] LABS: Urine Blood TRACE (NEG); Urine Glucose NEGATIVE (NEG); Urine Protein NEGATIVE (NEG); Urine Specific Gravity >1.030 (1.005-1.030); Urine pH 5.5 (5.0-7.0)
[2019-10-16 12:41] LABS: Albumin 3.5 g/dL (3.4-5.0); Bilirubin Direct 0.2 mg/dL (0-0.2); Bilirubin Total 0.6 mg/dL (0.2-1.0); Potassium 3.7 mmol/L (3.5-5.1); Protein, Total 7.6 g/dL (6.4-8.2)
--- NOTE | 2019-10-16 13:03 | RAD REPORT ---
EXAM DESCRIPTION: CT - Abdomen Pelvis W Contrast - 10/16/2019 12:50 pm CLINICAL HISTORY: Abdominal pain COMPARISON: none. TECHNIQUE: Computed axial tomography of the abdomen pelvis was obtained. 100 cc Isovue-300 was admin istered intravenously. Oral contrast was not requested which limits evaluation of bowel. All CT scans are performed using dose optimization technique as appropriate and may include automated exposure control or mA/KV adjustment according to patient size. FINDINGS: Cholecystectomy The spleen measures 14 centimeters The liver, pancreas, adrenal and kidneys appear unremarkable. There is no evidence of diverticulitis. Normal appendix Retroverted uterus. . Bilateral ovarian prominent follicles without significant free-fluid IMPRESSION: Mild splenomegaly
--- NOTE | 2019-10-16 16:00 | RAD REPORT ---
EXAM DESCRIPTION: US - Transvaginal Study Probe - 10/16/2019 3:40 pm CLINICAL HISTORY: Pelvic pain COMPARISON: October 16, 2019 cat scan FINDINGS: The uterus is retroverted and measures 8 x 5 x 7cm. A fibroid is not seen. The endometrial stripe measures 15 millimeters which is upper limits normal The ovaries are normal in size and echotexture. 1.8 centimeter hemorrhagic right ovarian follicle. 1. 8 centimeter simple left ovarian follicle. Each ovary contains blood flow No significant free fluid is seen. The right and left adnexa are unremarkable IMPRESSION: Prominent follicle within each ovary without significant free-fluid
--- NOTE | 2019-10-16 16:13 | EDPHYS ---
Physician Documentation [facility] Name: Arabella Wright Age: 34 yrs Sex: Female : 1985 Arrival Date: 10/16/2019 Time: 11:45 Bed 20 Private MD: ED Physician Ananda Powers HPI: 10/15 12:22 This 34 yrs old Female presents to ER via Ambulatory with complaints of kdr Abdominal Pain, Fever. 12:27 The patient presents with abdominal pain in the left lower quadrant. Onset: The kdr symptoms/episode began/occurred suddenly, last night, Some time after midnight, the pain awoke her from sleep. The symptoms do not radiate. Associated signs and symptoms: Pertinent positives: nausea and vomiting, fever, Pertinent negatives: blood in stools, chest pain, constipation, diarrhea, dysuria, headache, hematuria, nausea, palpitations, shortness of breath, vaginal discharge, vomiting blood. The symptoms are described as achy, burning, dull, stabbing, waxing/waning. Modifying factors: The symptoms are alleviated by remaining still, the symptoms are aggravated by coughing, breathing deeply, movement, touching the area. Severity of pain: At its worst the pain was moderate today, in the emergency department the pain has improved mildly. The patient has not experienced similar symptoms in the past. The patient has not recently seen a physician. 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 - Social history:: Smoking status: Patient denies any tobacco usage or history of. ROS: 12:27 Constitutional: Negative for fever, chills, and weight loss, Eyes: Negative for injury, kdr pain, redness, and discharge, ENT: Negative for injury, pain, and discharge, Neck: Negative for injury, pain, and swelling, Cardiovascular: Negative for chest pain, palpitations, and edema, Respiratory: Negative for shortness of breath, cough, wheezing, and pleuritic chest pain, Back: Negative for injury and pain, : Negative for injury, bleeding, discharge, and swelling, MS/Extremity: Negative for injury and deformity, Skin: Negative for injury, rash, and discoloration, Neuro: Negative for headache, weakness, numbness, tingling, and seizure activity. Psych: Negative for depression, anxiety, suicide ideation, homicidal ideation, and hallucinations, Allergy/Immunology: Negative for hives, rash, and allergies, Endocrine: Negative for neck swelling, polydipsia, polyuria, polyphagia, and marked weight changes, Hematologic/Lymphatic: Negative for swollen nodes, abnormal bleeding, and unusual bruising. 12:27 Abdomen/GI: Positive for abdominal pain, nausea and vomiting, constipation, Negative for diarrhea, abdominal distension, dysphagia, hematemesis, black/tarry stool, rectal pain, rectal bleeding. Exam: 12:27 Constitutional: This is a well developed, well nourished patient who is awake, alert, kdr and in no acute distress. Head/Face: Normocephalic, atraumatic. Eyes: Pupils equal round and reactive to light, extra-ocular motions intact. Lids and lashes normal. Conjunctiva and sclera are non-icteric and not injected. Cornea within normal limits. Periorbital areas with no swelling, redness, or edema. Neck: Trachea midline, no thyromegaly or masses palpated, and no cervical lymphadenopathy. Supple, full range of motion without nuchal rigidity, or vertebral point tenderness. No Meningismus. Chest/axilla: Normal chest wall appearance and motion. Nontender with no deformity. No lesions are appreciated. Cardiovascular: Regular rate and rhythm with a normal S1 and S2. No gallops, murmurs, or rubs. Normal PMI, no JVD. No pulse deficits. Respiratory: Lungs have equal breath sounds bilaterally, clear to auscultation and percussion. No rales, rhonchi or wheezes noted. No increased work of breathing, no retractions or nasal flaring. Back: No spinal tenderness. No costovertebral tenderness. Full range of motion. Skin: Warm, dry with normal turgor. Normal color with no rashes, no lesions, and no evidence of cellulitis. MS/ Extremity: Pulses equal, no cyanosis. Neurovascular intact. Full, normal range of motion. Neuro: Awake and alert, GCS 15, oriented to person, place, time, and situation. Cranial nerves II-XII grossly intact. Motor strength 5/5 in all extremities. Sensory grossly intact. Cerebellar exam normal. Normal gait. Psych: Awake, alert, with orientation to person, place and time. Behavior, mood, and affect are within normal limits. 12:27 Abdomen/GI: Inspection: obese Bowel sounds: active, all quadrants, Palpation: soft, mild abdominal tenderness, in the left lower quadrant. Vital Signs: 11:48 BP 118 / 82; Pulse 100; Resp 20; Temp 98.4; Pulse Ox 100% ; Weight 122.47 kg; Height 5 sv ft. 8 in. (172.72 cm); 12:58 BP 119 / 62; Pulse 68; Resp 15 S; Pulse Ox 100% on R/A; ca1 16:02 BP 114 / 60; Pulse 62; Resp 14; Temp 98.2(O); Pulse Ox 100% on R/A; Pain 0/10; ls4 11:48 Body Mass Index 41.05 (122.47 kg, 172.72 cm) sv MDM: 16:12 Patient medically screened. kdr 10/16 08:25 Data reviewed: vital signs, nurses notes, lab test result(s), radiologic studies. kdr Counseling: I had a detailed discussion with the patient and/or guardian regarding: the historical points, exam findings, and any diagnostic results supporting the discharge/admit diagnosis, lab results, radiology results, the need for outpatient follow up. 10/15 11:57 Order name: Basic Metabolic Panel; Complete Time: 14:49 ca1 10/15 11:57 Order name: CBC with Diff; Complete Time: 14:49 ca1 10/15 11:57 Order name: Hepatic Function; Complete Time: 14:49 ca1 10/15 11:57 Order name: Lipase; Complete Time: 14:49 ca1 10/15 12:20 Order name: Urine Dipstick--Ancillary (enter results); Complete Time: 14:49 em1 10/15 12:20 Order name: Urine --Ancillary (enter results); Complete Time: 14:49 em1 10/15 11:57 Order name: IV Saline Lock; Complete Time: 12:15 ca1 10/15 11:57 Order name: Labs collected and sent; Complete Time: 12:15 ca1 10/15 12:22 Order name: CT Abd/Pelvis - IV Contrast Only; Complete Time: 14:49 kdr 10/15 14:51 Order name: US Transvaginal Study (Probe); Complete Time: 16:11 kdr Administered Medications: 10/15 12:25 Drug: NS 0.9% 1000 ml Route: IV; Rate: 1 bolus; Site: left forearm; ca1 13:30 Follow up: Response: No adverse reaction; IV Status: Completed infusion ca1 12:27 Drug: Zofran (Ondansetron) 4 mg Route: IVP; Site: left forearm; ca1 13:30 Follow up: Response: No adverse reaction; Nausea is decreased ca1 12:33 Drug: morphine 4 mg {Note: RASS 0.} Route: IVP; Site: left forearm; ca1 13:30 Follow up: Response: No adverse reaction; Pain is decreased; RASS: Alert and Calm (0) ca1 Disposition: 10/16/19 16:12 Discharged to Home. Impression: Abdominal and pelvic pain. - Condition is Stable. - Discharge Instructions: Abdominal Pain, Adult, [id number]. - Prescriptions for Zofran 4 mg Oral Tablet - take 1 tablet by ORAL route every 12 hours As needed; 12 tablet. Tramadol 50 mg Oral Tablet - take 1 tablet by ORAL route every 8 hours as needed; 12 tablet. - Medication Reconciliation Form, Thank You Letter, Prescription Opioid Use form. - Follow up: Private Physician; When: 2 - 3 days; Reason: If symptoms return, Further diagnostic work-up, Recheck today's complaints, Continuance of care, Re-evaluation by your physician. - Problem is new. - Symptoms have improved. Signatures: Dispatcher [employer] Nargis Levin RN RN Ananda Powers MD MD kdr Stewart, Lisa, RN RN ls4 AcLeslie harvey RN RN ca1 Corrections: (The following items were deleted from the chart) 16:57 16:12 10/16/2019 16:12 Discharged to Home. Impression: Abdominal and pelvic pain. ls4 Condition is Stable. Forms are Medication Reconciliation Form, Thank You Letter, Antibiotic Education, Prescription Opioid Use. Follow up: Private Physician; When: 2 - 3 days; Reason: If symptoms return, Further diagnostic work-up, Recheck today's complaints, Continuance of care, Re-evaluation by your physician. Problem is new. Symptoms have improved. kdr
--- NOTE | 2019-10-16 16:13 | ER ---
Nurse's Notes [facility] Name: Arabella Wright Age: 34 yrs Sex: Female : 1985 Arrival Date: 10/16/2019 Time: 11:45 Bed 20 Private MD: Diagnosis: Abdominal and pelvic pain Presentation: 10/15 11:47 Chief complaint: Patient states: pain started in umbilical area and now has radiated to sv the LLQ started last night and reports fever. Coronavirus screen: Proceed with normal triage. Patient denies a cough. Patient denies shortness of breath or difficulty breathing. Patient denies measured and/or subjective temperature greater than 100.4F prior to today's visit. Patient denies travel on a cruise ship or to a country the [facility] currently lists as an affected area. Patient denies contact with known and/or suspected case of COVID-19. Ebola Screen: No symptoms or risks identified at this time. Risk Assessment: Do you want to hurt yourself or someone else? Patient reports no desire to harm self or others. Onset of symptoms was October 15, 2019. 11:47 Method Of Arrival: Ambulatory sv 11:47 Acuity: BONITA 3 sv 11:48 Initial Sepsis Screen: Does the patient meet any 2 criteria? HR > 90 bpm. No. Patient's sv initial sepsis screen is negative. Does the patient have a suspected source of infection? Yes: Acute abdominal pain. 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 - Social history:: Smoking status: Patient denies any tobacco usage or history of. Screenin:00 Abuse screen: Denies threats or abuse. Denies injuries from another. Nutritional ca1 screening: No deficits noted. Tuberculosis screening: No symptoms or risk factors identified. Fall Risk IV access (20 points). Assessment: 12:00 General: Appears in no apparent distress. comfortable, Behavior is calm, cooperative, ca1 appropriate for age. Pain: Complains of pain in umbilical area, left upper quadrant and left lower quadrant Pain does not radiate. Pain currently is 7 out of 10 on a pain scale. Quality of pain is described as stabbing, Pain began 1 day ago. Is intermittent. Neuro: Level of Consciousness is awake, alert, obeys commands, Oriented to person, place, time, situation, Appropriate for age. Cardiovascular: Heart tones S1 S2 present Capillary refill < 3 seconds Patient's skin is warm and dry. Respiratory: Airway is patent Respiratory effort is even, unlabored, Respiratory pattern is regular, symmetrical, Breath sounds are clear bilaterally. GI: Abdomen is round Bowel sounds present X 4 quads. Abd is soft X 4 quads Abdomen is tender to palpation in left upper quadrant and left lower quadrant Reports constipation, nausea, vomiting. : No signs and/or symptoms were reported regarding the genitourinary system. EENT: No signs and/or symptoms were reported regarding the EENT system. Derm: Skin is intact, is healthy with good turgor, Skin is pink, warm \T\ dry. Musculoskeletal: Circulation, motion, and sensation intact. Capillary refill < 3 seconds. 12:56 Reassessment: Patient appears in no apparent distress at this time. Patient and/or ca1 family updated on plan of care and expected duration. Pain level reassessed. Patient is alert, oriented x 3, equal unlabored respirations, skin warm/dry/pink. 14:02 Reassessment: Patient appears in no apparent distress at this time. Patient and/or ls4 family updated on plan of care and expected duration. Pain level reassessed. Patient is alert, oriented x 3, equal unlabored respirations, skin warm/dry/pink. 15:00 Reassessment: Patient appears in no apparent distress at this time. Patient and/or ls4 family updated on plan of care and expected duration. Pain level reassessed. Patient is alert, oriented x 3, equal unlabored respirations, skin warm/dry/pink. General:. 16:00 Reassessment: Patient appears in no apparent distress at this time. Patient and/or ls4 family updated on plan of care and expected duration. Pain level reassessed. Patient is alert, oriented x 3, equal unlabored respirations, skin warm/dry/pink. Vital Signs: 11:48 BP 118 / 82; Pulse 100; Resp 20; Temp 98.4; Pulse Ox 100% ; Weight 122.47 kg; Height 5 sv ft. 8 in. (172.72 cm); 12:58 BP 119 / 62; Pulse 68; Resp 15 S; Pulse Ox 100% on R/A; ca1 16:02 BP 114 / 60; Pulse 62; Resp 14; Temp 98.2(O); Pulse Ox 100% on R/A; Pain 0/10; ls4 11:48 Body Mass Index 41.05 (122.47 kg, 172.72 cm) sv ED Course: 11:45 Patient arrived in ED. ag5 11:45 Ananda Powers MD is Attending Physician. kdr 11:48 Triage completed. sv 11:48 Arm band placed on. sv 11:57 Leslie De, MICHELLE is Primary Nurse. ca1 12:00 Patient has correct armband on for positive identification. Bed in low position. Call ca1 light in reach. Side rails up X 1. Pulse ox on. NIBP on. Warm blanket given. 12:00 No provider procedures requiring assistance completed. Missed attempt(s): 20 gauge in ca1 right antecubital area. Bleeding controlled, band aid applied, catheter tip intact. 12:13 Inserted saline lock: 22 gauge in left forearm, using aseptic technique. Blood ca1 collected. 12:49 CT Abd/Pelvis - IV Contrast Only In Process Unspecified. EDMS 14:04 Report given to MICHELLE Hansen. ca1 15:40 US Transvaginal Study (Probe) In Process Unspecified. EDMS 16:29 IV discontinued, intact, bleeding controlled, No redness/swelling at site. Pressure ls4 dressing applied. Administered Medications: 12:25 Drug: NS 0.9% 1000 ml Route: IV; Rate: 1 bolus; Site: left forearm; ca1 13:30 Follow up: Response: No adverse reaction; IV Status: Completed infusion ca1 12:27 Drug: Zofran (Ondansetron) 4 mg Route: IVP; Site: left forearm; ca1 13:30 Follow up: Response: No adverse reaction; Nausea is decreased ca1 12:33 Drug: morphine 4 mg {Note: RASS 0.} Route: IVP; Site: left forearm; ca1 13:30 Follow up: Response: No adverse reaction; Pain is decreased; RASS: Alert and Calm (0) ca1 Outcome: 16:12 Discharge ordered by . kdr 16:29 Discharged to home ambulatory. ls4 16:29 Condition: good 16:29 Discharge instructions given to patient, Instructed on discharge instructions, follow up and referral plans. medication usage, Demonstrated understanding of instructions, follow-up care, medications, Prescriptions given X 2. 16:57 Patient left the ED. ls4 Signatures: Dispatcher [employer] Nargis Levin, RN RN Ananda De La Paz MD MD kdr Stewart, Lisa, RN RN ls4 Leslie De RN RN [facility] Ismael Aguilera ag5 Corrections: (The following items were deleted from the chart) 11:52 11:48 Pulse 100bpm; Resp 20bpm; Pulse Ox 100%; Temp 98.4F; 122.47 kg; Height 5 ft. 8 sv in.; BMI: 41.0; sv
[2019-10-16 17:25] VITALS: O2SAT 100
[2019-10-16 17:27] VITALS: BP 114/60; TEMP 98.2
== END 2019-10-16 16:57 | disposition home or self-care (01) ==
LOC: ER 11:43
DX: R10.2 Pelvic and perineal pain (principal); Z88.0 Allergy status to penicillin
CPT/HCPCS: 36415; 74177; 76830; 80048; 80076; 81003; 81025; 83690; 85025; 96361; 96374; 96375; 99284; J2405; J7030; Q9967

== ENCOUNTER 2020-04-05 18:54 | Emergency (ER) | payer SELFPAY ==
--- NOTE | 2020-04-05 21:43 | EDPHYS ---
Physician Documentation [facility] Name: Arabella Wright Age: 34 yrs Sex: Female : 1985 Arrival Date: 04/05/2020 Time: 19:00 Bed 24 Private MD: ED Physician Vernon Doran HPI: 04/05 20:46 This 34 yrs old Female presents to ER via Ambulatory with complaints of Fever.tw4 20:46 The patient reports fever, not measured (subjective). Onset: The symptoms/episode tw4 began/occurred today. Modifying factors: there are no obvious modifying factors. Associated signs and symptoms: Pertinent positives: arthralgias. Severity of symptoms: At their worst the symptoms were mild in the emergency department the symptoms have improved. The patient has not experienced similar symptoms in the past. EXPOSED TO COVID . Historical: - Allergies: 19:10 PENICILLINS; hb 19:10 Demerol; hb - Home Meds: 19:10 None [Active]; hb - PMHx: 19:10 Asthma; hb - PSHx: 19:10 Tubal ligation; hb - Immunization history:: Adult Immunizations up to date. - Social history:: Smoking status: Patient denies any tobacco usage or history of. ROS: 20:48 Eyes: Negative for injury, pain, redness, and discharge, Cardiovascular: Negative for tw4 chest pain, palpitations, and edema, Respiratory: Negative for shortness of breath, cough, wheezing, and pleuritic chest pain, Abdomen/GI: Negative for abdominal pain, nausea, vomiting, diarrhea, and constipation. 20:48 MS/Extremity: Negative for injury and deformity, Skin: Negative for injury, rash, and discoloration, Neuro: Negative for headache, weakness, numbness, tingling, and seizure. Exam: 20:48 Constitutional: This is a well developed, well nourished patient who is awake, alert, tw4 and in no acute distress. Head/Face: Normocephalic, atraumatic. Chest/axilla: Normal chest wall appearance and motion. Nontender with no deformity. No lesions are appreciated. Cardiovascular: Regular rate and rhythm with a normal S1 and S2. No gallops, murmurs, or rubs. Normal PMI, no JVD. No pulse deficits. Respiratory: Lungs have equal breath sounds bilaterally, clear to auscultation and percussion. No rales, rhonchi or wheezes noted. No increased work of breathing, no retractions or nasal flaring. Abdomen/GI: Soft, non-tender, with normal bowel sounds. No distension or tympany. No guarding or rebound. No evidence of tenderness throughout. Back: No spinal tenderness. No costovertebral tenderness. Full range of motion. MS/ Extremity: Pulses equal, no cyanosis. Neurovascular intact. Full, normal range of motion. Neuro: Awake and alert, GCS 15, oriented to person, place, time, and situation. Cranial nerves II-XII grossly intact. Motor strength 5/5 in all extremities. Sensory grossly intact. Cerebellar exam normal. Normal gait. Vital Signs: 19:07 BP 155 / 88; Pulse 91; Resp 16; Temp 99; Pulse Ox 100% on R/A; Pain 4/10; hb 21:45 BP 134 / 87; Pulse 81; Resp 18; Temp 98.7(O); Pulse Ox 98% on R/A; lp1 MDM: 20:21 Patient medically screened. tw4 21:41 Differential diagnosis: viral Infection, bacterial infection, URI. Data reviewed: vital tw4 signs, nurses notes, lab test result(s), Flu: negative strep positive. Data interpreted: Pulse oximetry: Interpretation: normal. Counseling: I had a detailed discussion with the patient and/or guardian regarding: the historical points, exam findings, and any diagnostic results supporting the discharge/admit diagnosis. Special discussion: I discussed with the patient/guardian in detail that at this point there is no indication for admission to the hospital. It is understood, however, that if the symptoms persist or worsen the patient needs to return immediately for re-evaluation. 04/05 20:02 Order name: COVID-19 tw4 04/05 20:02 Order name: Flu tw4 04/05 20:02 Order name: Strep tw4 04/05 20:02 Order name: Droplet/Contact Precautions; Complete Time: 20:15 tw4 04/05 20:02 Order name: Labs collected and sent; Complete Time: 20:15 tw4 04/05 20:02 Order name: O2 Per Protocol; Complete Time: 20:15 tw4 Administered Medications: No medications were administered Disposition: 04/05/20 21:43 Discharged to Home. Impression: Acute pharyngitis. - Condition is Stable. - Discharge Instructions: Pharyngitis, Sore Throat, [id number]. - Prescriptions for Cleocin 150 mg Oral Capsule - take 1 capsule by ORAL route every 6 hours for 5 days; 20 capsule. Ibuprofen 800 mg Oral Tablet - take 1 tablet by ORAL route every 12 hours As needed take with food; 20 tablet. - Medication Reconciliation Form, Thank You Letter, Antibiotic Education, Prescription Opioid Use form. - Follow up: Private Physician; When: Upon discharge from the Emergency Department; Reason: Recheck today's complaints, Continuance of care, Re-evaluation by your physician. - Problem is new. - Symptoms have improved. Signatures: Dispatcher [employer] EDGwen Laguerre RN RN lp1 Rhianna Rehman RN RN Vernon Doran MD MD tw4 Corrections: (The following items were deleted from the chart) 20:15 20:02 Document PUI# ordered. tw4 ll1 20:15 20:02 Not[facility] [phone]/ ordered. tw4 ll1 21:57 21:43 04/05/2020 21:43 Discharged to Home. Impression: Acute pharyngitis. Condition is lp1 Stable. Forms are Medication Reconciliation Form, Thank You Letter, Antibiotic Education, Prescription Opioid Use. Follow up: Private Physician; When: Upon discharge from the Emergency Department; Reason: Recheck today's complaints, Continuance of care, Re-evaluation by your physician. Problem is new. Symptoms have improved. tw4
--- NOTE | 2020-04-05 21:43 | ER ---
Nurse's Notes [facility] Name: Arabella Wright Age: 34 yrs Sex: Female : 1985 Arrival Date: 04/05/2020 Time: 19:00 Bed 24 Private MD: Diagnosis: Acute pharyngitis Presentation: 04/05 19:07 Chief complaint: Fever x 2 days, body aches, cough, dizziness, headache, and nausea hb today. Coronavirus screen: Client presents with at least one sign or symptom that may indicate coronavirus-19. Standard/surgical mask placed on the client. Provider contacted for isolation considerations. Ebola Screen: No symptoms or risks identified at this time. Initial Sepsis Screen: Does the patient meet any 2 criteria? No. Patient's initial sepsis screen is negative. Does the patient have a suspected source of infection? No. Patient's initial sepsis screen is negative. Risk Assessment: Do you want to hurt yourself or someone else? Patient reports no desire to harm self or others. Onset of symptoms was April 04, 2020. 19:07 Method Of Arrival: Ambulatory hb 19:07 Acuity: BONITA 4 hb Historical: - Allergies: 19:10 PENICILLINS; hb 19:10 Demerol; hb - Home Meds: 19:10 None [Active]; hb - PMHx: 19:10 Asthma; hb - PSHx: 19:10 Tubal ligation; hb - Immunization history:: Adult Immunizations up to date. - Social history:: Smoking status: Patient denies any tobacco usage or history of. Screenin:30 Abuse screen: Denies threats or abuse. Denies injuries from another. Nutritional lp1 screening: No deficits noted. Tuberculosis screening: No symptoms or risk factors identified. Fall Risk None identified. Assessment: 20:30 General: Appears in no apparent distress. Behavior is appropriate for age. Pain: lp1 Complains of pain in head. Neuro: Level of Consciousness is awake, alert, obeys commands, Oriented to person, place, time, situation. Cardiovascular: Patient's skin is warm and dry. Respiratory: Reports cough that is non-productive, Respiratory effort is even, unlabored, Respiratory pattern is regular, symmetrical. GI: No signs and/or symptoms were reported involving the gastrointestinal system. : No signs and/or symptoms were reported regarding the genitourinary system. EENT: Reports pain when swallowing. Derm: Skin is pink, warm \T\ dry. Musculoskeletal: No deficits noted. Vital Signs: 19:07 BP 155 / 88; Pulse 91; Resp 16; Temp 99; Pulse Ox 100% on R/A; Pain 4/10; hb 21:45 BP 134 / 87; Pulse 81; Resp 18; Temp 98.7(O); Pulse Ox 98% on R/A; lp1 ED Course: 19:00 Patient arrived in ED. mr 19:09 Triage completed. hb 19:10 Arm band placed on. hb 19:51 Vernon Doran MD is Attending Physician. tw4 20:14 Candy Joseph, RN is Primary Nurse. ll1 20:30 Patient has correct armband on for positive identification. lp1 21:30 No provider procedures requiring assistance completed. Patient did not have IV access lp1 during this emergency room visit. 21:34 Gwen Damon, RN is Primary Nurse. lp1 Administered Medications: No medications were administered Outcome: 21:43 Discharge ordered by . tw4 21:50 Discharged to home ambulatory. lp1 21:50 Condition: good 21:50 Discharge instructions given to patient, Instructed on discharge instructions, follow up and referral plans. medication usage, Demonstrated understanding of instructions, follow-up care, medications, Prescriptions given X 2. 21:57 Patient left the ED. lp1 Addendum: 04/09/2020 20:08 Addendum: COVID-19 Result: Positive result giiven to ED physician to notify pt. b b Physician: Joss Garrett MD Physician was able to contact pt and pt was notified of positive COVID-19 swab result. Physician answered pt questions. Signatures: Aishwarya Caldwell mr MchughFabiola, RN RN Gwen Damon, RN RN lp1 Rhianna Rehman RN RN Vernon Doran MD MD 4 Candy Joseph RN RN 1
== END 2020-04-05 21:57 | disposition home or self-care (01) ==
LOC: ER 18:54
DX: U07.1 COVID-19 (principal); J02.9 Acute pharyngitis, unspecified; Z88.0 Allergy status to penicillin; Z88.5 Allergy status to narcotic agent
CPT/HCPCS: 87081; 87804; 99282; U0002

== ENCOUNTER 2024-03-24 13:32 | Emergency (ER) | payer OTHER, SELFPAY ==
[2024-03-24] MEDS ORDERED: HYDROCODONE/APAP 5/325 MG TAB ONE (13:56)
--- NOTE | 2024-03-24 15:01 | RAD REPORT ---
EXAMINATION: XR LEFT FOOT CLINICAL INDICATION: Pain;Swelling TECHNIQUE: Multiple projections of the left foot were obtained. COMPARISON: No prior exam. FINDINGS: No acute fractures or dislocations are seen. Small posterior and plantar calcaneal spurs.
--- NOTE | 2024-03-24 15:30 | ER ---
Nurse's Notes 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 patient currently rates her pain as a 6/10 on the pain scale if she is not walking on it, if she puts weight on her foot, she rates it a 9/10 on the pain scale. Coronavirus screen: At this time, the client does not indicate any symptoms associated with coronavirus-19. Ebola Screen: No symptoms or risks identified at this time. Initial Sepsis Screen: Does the patient meet any 2 criteria? No. Patient's initial sepsis screen is negative. Does the patient have a suspected source of infection? No. Patient's initial sepsis screen is negative. Risk Assessment: Do you want to hurt yourself or someone else? Patient reports no desire to harm self or others. Onset of symptoms was March 24, 2024. 13:42 Method Of Arrival: Wheelchair ap3 13:42 Acuity: BONITA 4 ap3 Triage Assessment: 13:44 General: Appears in no apparent distress. Behavior is calm, cooperative, appropriate ap3 for age. Pain: Complains of pain in left foot Pain currently is 6 out of 10 on a pain scale. at worst was 9 out of 10 on a pain scale. Pain began suddenly. Neuro: Level of Consciousness is awake, alert, obeys commands, Oriented to person, place, time, situation. Cardiovascular: Patient's skin is warm and dry. Respiratory: Airway is patent Respiratory effort is even, unlabored, Respiratory pattern is regular, symmetrical. Historical: - Allergies: 13:43 Demerol; ap3 13:43 PENICILLINS; ap3 - PMHx: 13:43 Asthma; ap3 - Immunization history:: Client reports receiving the 2nd dose of the Covid vaccine. - Infectious Disease History:: Denies. - Social history:: Smoking status: Patient denies any tobacco usage or history of. Screenin:40 [facility] ED Fall Risk Assessment (Adult) History of falling in the last 3 months, tm6 including since admission No falls in past 3 months (0 pts) Confusion or Disorientation No (0 pts) Intoxicated or Sedated No (0 pts) Impaired Gait No (0 pts) Mobility Assist Device Used No (0 pt) Altered Elimination No (0 pt) Score/Fall Risk Level 0 - 2 = Low Risk Oriented to surroundings, Maintained a safe environment, Educated pt \T\ family on fall prevention, incl call for assistance when getting out of bed. Abuse screen: Denies threats or abuse. Denies injuries from another. Nutritional screening: No deficits noted. Tuberculosis screening: No symptoms or risk factors identified. Assessment: 13:40 General: Appears in no apparent distress. Pain: Complains of pain in left foot Pain tm6 currently is 6 out of 10 on a pain scale. at worst was 9 out of 10 on a pain scale. Pain began 1 hour ago. Aggravated by increased activity, weight bearing. Neuro: Level of Consciousness is awake, alert, obeys commands, Oriented to person, place, time, situation. Cardiovascular: Patient's skin is warm and dry. Respiratory: Airway is patent Respiratory effort is even, unlabored, Respiratory pattern is regular, symmetrical. GI: No signs and/or symptoms were reported involving the gastrointestinal system. Abdomen is flat, non-distended. : No signs and/or symptoms were reported regarding the genitourinary system. EENT: No signs and/or symptoms were reported regarding the EENT system. Derm: No signs and/or symptoms reported regarding the dermatologic system. Musculoskeletal: Reports pain in left foot since one hour ago. Pain is 6 out of 10 on a pain scale. 14:48 Reassessment: Patient and/or family updated on plan of care and expected duration. Pain tm6 level reassessed. Patient is alert, oriented x 3, equal unlabored respirations, skin warm/dry/pink. Patient states symptoms have improved. Vital Signs: 13:42 BP 132 / 91; Pulse 97; Resp 18; Temp 98.9; Pulse Ox 100% ; Pain 6/10; ap3 14:45 BP 141 / 83; Pulse 81; Pulse Ox 100% on R/A; Pain 4/10; tm6 13:42 Pain Scale: Adult ap3 14:45 Pain Scale: Adult tm6 ED Course: 13:35 Patient arrived in ED. ra3 13:40 Sheri Guadarrama, RN is Primary Nurse. tm6 13:40 Esa Espinosa FNP-C is [facility]. dr5 13:40 Girish Long MD is Attending Physician. dr5 13:40 Patient has correct armband on for positive identification. Bed in low position. Call tm6 light in reach. Side rails up X 1. Provided Education on: use of call bass. Client placed on continuous cardiac and pulse oximetry monitoring. NIBP monitoring applied. Pulse ox on. NIBP on. Door closed. Noise minimized. Pillow given. 13:43 Triage completed. ap3 14:56 Foot Left 3 View XRAY In Process Unspecified. EDMS 15:25 3D boot applied to left foot. ph 15:35 No provider procedures requiring assistance completed. Patient did not have IV access ph during this emergency room visit. 15:57 Arm band placed on. ph Administered Medications: 13:58 Drug: HYDROcodone-acetaminophen PO 5 mg-325 mg 1 tabs PO once Route: PO; tm6 14:48 Follow up: Response: No adverse reaction; Pain is decreased tm6 Medication: 13:40 VIS not applicable for this client. tm6 Outcome: 15:29 Discharge ordered by MD. dr5 15:50 Discharged to home via wheelchair, with family, ph 15:50 Condition: good 15:50 Discharge instructions given to patient, Instructed on discharge instructions, follow up and referral plans. medication usage, Demonstrated understanding of instructions, follow-up care, medications, Prescriptions given X 1, 15:54 Patient left the ED. ap3 Signatures: Dispatcher [employer] EDJulissa Underwood RN RN Alona Colby RN RN ap3 Sheri Guadarrama, RN RN tm6 Vivian Oliva ra3 Esa Espinosa FNP-C SALES ORDER COORDINATOR-Cdr5
--- NOTE | 2024-03-24 15:30 | EDPHYS ---
Physician Documentation [facility] Name: Arabella Wright Age: 38 yrs Sex: Female : 1985 Arrival Date: 03/24/2024 Time: 13:32 Bed 6 Private MD: ED Physician Girish Long HPI: 03/24 14:12 This 38 yrs old Female presents to ER via Wheelchair with complaints of Foot dr5 Injury - Left. 14:12 The patient presents with a contusion, swelling, tenderness. The complaints affect the dr5 dorsum of left foot. Context: The problem was sustained at home. Onset: The symptoms/episode began/occurred 1 hour(s) ago. Patient is a 38 year old female presenting with left foot pain / swelling after a garcia fell on top of her.. Historical: - Allergies: 13:43 Demerol; ap3 13:43 PENICILLINS; ap3 - PMHx: 13:43 Asthma; ap3 - Immunization history:: Client reports receiving the 2nd dose of the Covid vaccine. - Infectious Disease History:: Denies. - Social history:: Smoking status: Patient denies any tobacco usage or history of. ROS: 14:13 Constitutional: as per hpi dr5 Exam: 14:13 Constitutional: This is a well developed, well nourished patient who is awake, alert, dr5 and in no acute distress. Head/Face: Normocephalic, atraumatic. Eyes: Pupils equal round and reactive to light, extra-ocular motions intact. Lids and lashes normal. Conjunctiva and sclera are non-icteric and not injected. Cornea within normal limits. Periorbital areas with no swelling, redness, or edema. Cardiovascular: Regular rate and rhythm with a normal S1 and S2. Normal PMI, no JVD. No pulse deficits. Respiratory: Lungs have equal breath sounds bilaterally, clear to auscultation. No rales, rhonchi or wheezes noted. No increased work of breathing, no retractions or nasal flaring. Abdomen/GI: Soft, non-tender, non-distended Skin: Warm, dry with normal turgor. Normal color with no rashes, no lesions, and no evidence of cellulitis. Neuro: Awake and alert, GCS 15, oriented to person, place, time, and situation. Cranial nerves II-XII grossly intact. Motor strength 5/5 in all extremities. Sensory grossly intact. Cerebellar exam normal. Normal gait. 14:13 Musculoskeletal/extremity: Extremities: noted in the lateral aspect on dorsum of left foot: swelling, tenderness, Vital Signs: 13:42 BP 132 / 91; Pulse 97; Resp 18; Temp 98.9; Pulse Ox 100% ; Pain 6/10; ap3 14:45 BP 141 / 83; Pulse 81; Pulse Ox 100% on R/A; Pain 4/10; tm6 13:42 Pain Scale: Adult ap3 14:45 Pain Scale: Adult tm6 Procedures: 16:57 Splinting: using Tall Walking Boot. dr5 MDM: 13:41 Medical Screening Exam initiated dr5 14:13 Differential diagnosis: closed fracture, contusion, abrasion. Data reviewed: vital dr5 signs, nurses notes. I considered the following discharge prescriptions or medication management in the emergency department Medications were administered in the Emergency Department. See MAR. 16:55 Care significantly affected by the following chronic conditions: Asthma. Care dr5 significantly affected by the following Social Determinants of Health: Poor access to healthcare and/or lack of insurance, Poor access to transportation. Counseling: I had a detailed discussion with the patient and/or guardian regarding the historical points, exam findings, and any diagnostic results supporting the discharge/admit diagnosis, lab results, the need for outpatient follow up, for definitive care, a family practitioner, a orthopedic surgeon, to return to the emergency department if symptoms worsen or persist or if there are any questions or concerns that arise at home. Medication response: [place]. Response to treatment: the patient's symptoms have markedly improved after treatment. ED course: Negative x-ray. Walking boot applied per patient request. Alternate Tylenol / Motrin as needed for pain or inflammation.. 03/24 13:53 Order name: Foot Left 3 View XRAY; Complete Time: 15:07 dr5 03/24 15:16 Order name: Walking boot; Complete Time: 15:54 dr5 Administered Medications: 13:58 Drug: HYDROcodone-acetaminophen PO 5 mg-325 mg 1 tabs PO once Route: PO; tm6 14:48 Follow up: Response: No adverse reaction; Pain is decreased tm6 Disposition Summary: 03/24/24 15:29 Discharge Ordered Notes: Location: Home dr5 Condition: Stable dr5 Diagnosis - Pain in left foot dr5 Followup: dr5 - With: Emergency Department - When: As needed - Reason: Worsening of condition Followup: dr5 - With: Private Physician - When: 1 - 2 days - Reason: Recheck today's complaints, Continuance of care, Re-evaluation by your physician Discharge Instructions: - Discharge Summary Sheet dr5 - Foot Sprain dr5 Forms: - Medication Reconciliation Form dr5 - Patient Portal Instructions dr5 - Leadership Thank You Letter dr5 Prescriptions: - Anaprox DS 550 mg Oral Tablet - take 1 tablet ORAL route every 12 hours As needed; 20 tablet; Refills: 0, dr5 Product Selection Permitted Signatures: Dispatcher [employer] Alona Nieves RN RN ap3 Sheri Guadarrama RN RN tm6 Esa Espinosa, NEWCOMER HOSTESS-C NEWCOMER HOSTESS-Cdr5
[2024-03-24 21:07] VITALS: TEMP 98.9; O2SAT 100
[2024-03-24 21:13] VITALS: BP 141/83
== END 2024-03-24 15:54 | disposition home or self-care (01) ==
LOC: ER 13:32
DX: M79.672 Pain in left foot (principal); J45.909 Unspecified asthma, uncomplicated; Z88.0 Allergy status to penicillin; Z88.5 Allergy status to narcotic agent
CPT/HCPCS: 99284